=== PATIENT | female | born 1975 | race Caucasian/White ===

== ENCOUNTER 2016-12-22 11:32 | Emergency (ER) | payer SELFPAY ==
[~2016-12-22] VITALS: Ht 165.1 cm; Wt 63.6 kg
[~2016-12-22 11:32] MED LIST: CEPH500C3 PO; LASI20TA PO; METH5SOL3 PO
[2016-12-22] MEDS ORDERED: IBUP-232 PO (11:45)
[2016-12-22] MEDS ORDERED: IBUP800T23 PO (13:08)
[2016-12-22] MEDS ORDERED: OFLO0.3D9 RIGHT EAR (13:08)
--- NOTE | 2016-12-22 13:08 | PD ---
HPI Chief Complaint: ENT Complaint Time Seen by Provider: 13:03 Travel History International Travel<30 days: No Contact w/Intl Traveler<30days: No Traveled to known affect area: No History of Present Illness HPI 41-year-old female presents emergency department complaint of right ear pain that onset this morning. She has been cleaning her right ear out multiple times with [id number] products since she's been told she had a cerumen impaction last time she was seen here. She has not followed up with ENT as directed. She has been flushing her ear and using Q-tips to remove the earwax. She is requesting her ear before because she cannot get all the earwax out. Reports feeling like there is fluid behind her ear. No known relieving factors. Denies fever, chills, nausea, vomiting. Denies drainage from the ear. No known allergies. No other modifying factors or associated signs and symptoms. PFSH Past Medical History Cancer: Yes (hx cervical cancer) Chemotherapy: Yes (FINISHED 3 YEARS AGO) Diminished Hearing: No ?: Not Past Surgical History Cholecystectomy: Yes Hysterectomy: Yes (partial) Social History Alcohol Use: No Tobacco Use: Yes (1 ppd) Substance Use: No (currently goes to methadone clinic) Allergies-Medications (Allergen,Severity, Reaction): Coded Allergies: No Known Allergies (Unverified , 05/18/16) Reported Meds & Prescriptions Reported Meds & Active Scripts Active Ibuprofen 800 Mg Tab 800 Mg PO Q6HR PRN Ofloxacin Otic Drops 0.3 % Drops 10 Drop RIGHT EAR DAILY 7 Days Reported Ibuprofen 600 Mg Tab 600 Mg PO Q6H PRN Methadone HCl 5 Mg/5 Ml Faby 10 Mg PO DAILY Review of Systems Except as stated in HPI: all other systems reviewed are Neg Physical Exam Narrative GENERAL: Well-nourished, well-developed female patient, in no acute distress SKIN: Warm and dry. No rash. HEAD: Atraumatic. Normocephalic. EYES: Pupils equal and round at 3 mm with brisk reaction. No scleral icterus. No injection or drainage. PERRLA. ENT: Mucosa pink and moist. No erythema or exudates. No uvular edema. No uvular , palatal, or tonsillar deviation. Airway patent. EARS: Bilateral pinnae and external canals appear within normal limits. Left tympanic membranes without erythema, dullness or perforation. Right tympanic membrane appears ruptured; without erythema, edema, drainage. NECK: Trachea midline. No lymphadenopathy. CARDIOVASCULAR: Regular rate. RESPIRATORY: No accessory muscle use. GASTROINTESTINAL: Flat. MUSCULOSKELETAL: No obvious deformities. No clubbing. No cyanosis. No edema. NEUROLOGICAL: Awake and alert. Oriented 3. No obvious cranial nerve deficits. Motor grossly within normal limits. Normal speech. Moves all extremities. 5/5 strength to all extremities. PSYCHIATRIC: Appropriate mood and affect; insight and judgment normal. [facility] Medical Decision Making Medical Screen Exam Complete: Yes Emergency Medical Condition: Yes Medical Record Reviewed: Yes Differential Diagnosis Impaction, foreign body, tympanic membrane rupture or perforation Narrative Course 41-year-old female physical exam consistent with a right tympanic membrane rupture or perforation. Ofloxacin and ibuprofen prescribed for home. Instructed patient to follow up with ENT. Patient verbalized understanding and agreement with treatment plan. Patient is medically cleared and stable for discharge. Discussed reasons to return to the emergency department. Instructed patient to follow up with primary care provider. Patient agrees with treatment plan. The patients vital signs are stable and the patient is stable for outpatient follow-up and treatment. Patient discharged home, stable and in no acute distress. Diagnosis Primary Impression: Ruptured or perforated eardrum Qualified Code: H72.91 - Ruptured or perforated eardrum, right Referrals: Ear / Nose / Throat Specialist Primary Care Physician Patient Instructions: General Instructions Departure Forms: Work Release Enter return to work date: Dec 23, 2016 Additional Instructions: Use antibiotic eardrops as prescribed Ibuprofen or Tylenol as directed and as needed to reduce pain and fever Avoid getting water in the ears Do not put anything in the ears; including Q-tips Follow-up with your primary care provider Follow-up with ears nose throat specialist Return to the emergency department immediately with worsening of symptoms Med/Other Pt SpecificInfo: Prescription(s) given Scripts Ibuprofen 800 Mg [id number] Mg PO Q6HR PRN (PAIN) #30 TAB Ref 0 Prov:Lary Silva 12/22/16 Ofloxacin Otic Drops 0.3 % Drops10 Drop RIGHT EAR DAILY 7 Days Ref 0 Prov:Lary Silva 12/22/16 Disposition: 01 DISCHARGE HOME Condition: Stable Lary Silva Dec 22, 2016 13:08
== END 2016-12-22 13:50 | disposition home or self-care (01) ==
LOC: NEPB 11:32
DX: H72.91 Unspecified perforation of tympanic membrane, right ear (principal); F17.200 Nicotine dependence, unspecified, uncomplicated; Z85.41 Personal history of malignant neoplasm of cervix uteri
CPT/HCPCS: 99282

== ENCOUNTER 2017-10-31 14:11 | Emergency (ER) | payer SELFPAY ==
[~2017-10-31] VITALS: Ht 165.1 cm; Wt 60.3 kg
[~2017-10-31 14:11] MED LIST changes: -CEPH500C3 PO; +IBUP-232 PO; +IBUP1TAB7 PO; -LASI20TA PO; +OFLO0.3D9 RIGHT EAR
[2017-10-31 14:28] VITALS: BP 130/79; PULSE 100; RESP 16; TEMP 98.2; O2SAT 98
--- NOTE | 2017-10-31 14:51 | PD ---
HPI Chief Complaint: Skin Problem Time Seen by Provider: 14:43 Travel History International Travel<30 days: No Contact w/Intl Traveler<30days: No Traveled to known affect area: No History of Present Illness HPI Patient is a 42-year-old female presenting to emergency department for evaluation of a right second fingernail infection. Patient states she had a hangnail 2 days ago which she bit off, she subsequently started having swelling , redness and discoloration to the right second fingernail and fingertip. Pt reports pain is an 8/10 and states it is throbbing. No alleviating factors, pain is exacerbated with touch or movement. Denies any fevers or chills. Symptoms started gradually. PFSH Past Medical History Cancer: Yes (hx cervical cancer) Cardiovascular Problems: Yes (htn but takes no meds) Chemotherapy: Yes (inpast) Diminished Hearing: No Immunizations Current: Yes Tetanus Vaccination: < 5 Years Influenza Vaccination: No ?: Not Past Surgical History Cholecystectomy: Yes Hysterectomy: Yes Social History Alcohol Use: No Tobacco Use: Yes (1 ppd) Substance Use: Yes Allergies-Medications (Allergen,Severity, Reaction): Coded Allergies: No Known Allergies (Unverified Adverse Reaction, Unknown, 10/31/17) Reported Meds & Prescriptions Reported Meds & Active Scripts Active No Active Prescriptions or Reported Medications Review of Systems Except as stated in HPI: all other systems reviewed are Neg Musculoskeletal: Positive: Edema (right second finger) Skin: Positive Change in Pigmentation, Positive Change in nails Physical Exam Narrative GENERAL: Well developed, well nourished, alert female. Resting in no acute distress. SKIN: Warm and dry. right second finger tip is erythematous, edematous and has a green discoloration to the medial aspect of the nailbed. <3 second cap refill noted. HEAD: Normocephalic. EYES: No scleral icterus. No injection or drainage. NECK: Supple, trachea midline. No JVD or lymphadenopathy. CARDIOVASCULAR: Regular rate and rhythm without murmurs, gallops, or rubs. RESPIRATORY: Breath sounds equal bilaterally. No accessory muscle use. GASTROINTESTINAL: Abdomen soft, non-tender, nondistended. MUSCULOSKELETAL: No cyanosis, or edema. Data Data Last Documented VS Vital Signs Date Time Temp Pulse Resp B/P (MAP) Pulse Ox O2 Delivery O2 Flow Rate FiO2 10/31/17 14:28 98.2 100 16 130/79 (96) 98 [facility] Medical Decision Making Medical Screen Exam Complete: Yes Emergency Medical Condition: Yes Interpretation(s) Vital Signs Date Time Temp Pulse Resp B/P (MAP) Pulse Ox O2 Delivery O2 Flow Rate FiO2 10/31/17 14:28 98.2 100 16 130/79 (96) 98 Differential Diagnosis Paronychia versus abscess versus cellulitis versus other Narrative Course Patient presented with 2 days of an infected right second fingertip. Her vital signs are stable, she is afebrile. Please see procedure report for I&D. Cultures were obtained. Patient tolerated well. She was encouraged to keep area clean and dry, complete full course of antibiotics as prescribed. She is encouraged follow-up with her primary doctor or return to emergency department for any new or worsening symptoms. Patient verbalized understanding of instructions. Patient stable for discharge. Procedures Procedure Narrative After the risks and benefits were discussed the following procedure was performed: INCISION AND DRAINAGE OF ABSCESS: The area was prepped and was sterilely draped. Ethyl chloride was used to anesthetize the area. The area was properly anesthetized. A number 11 scalpel was used to make a 0.5-cm incision across the area of the abscess. Cultures were obtained. The abscess was drained an irrigated with normal saline. Sterile dressing applied. Diagnosis Primary Impression: Paronychia of finger Qualified Codes: L03.011 - Cellulitis of right finger Additional Impression: Encounter for incision and drainage procedure Referrals: Primary Care Physician 3 days Patient Instructions: Abscess Incision and Drainage (DC), General Instructions , Paronychia (ED) Additional Instructions: Keep the fingertip clean and dry, apply antibiotic ointment twice daily and cover with clean, dry dressing Complete full course of antibiotics as prescribed Return to emergency department for any new or worsening symptoms Follow-up with her primary doctor Med/Other Pt SpecificInfo: Prescription(s) given Scripts Tramadol (Tramadol) 50 Mg Tab 50 MG PO Q6H Y for PAIN, #7 TAB 0 Refills Prov: Buffy Awad 10/31/17 Mupirocin Topical (Mupirocin Topical) 2 % Oint 1 APPLIC TOPICAL BID for Mgmt Bacterial Infection, #22 GM 0 Refills Prov: Buffy Awad 10/31/17 Sulfamethoxazole-Trimethoprim (Bactrim DS) 800-160 Mg Tab 1 TAB PO BID for Infection for 7 Days, #14 TAB 0 Refills Prov: Buffy Awad 10/31/17 Cephalexin (Keflex) 500 Mg Cap 500 MG PO Q12H for Infection for 7 Days, #14 CAP 0 Refills Prov: Buffy Awad 10/31/17 Disposition: 01 DISCHARGE HOME Condition: Stable Buffy Awad Oct 31, 2017 14:51
[2017-10-31] MEDS ORDERED: MUPI2OIN TOPICAL (15:04)
[2017-10-31] MEDS ORDERED: CEPH-460 PO (15:04)
[2017-10-31] MEDS ORDERED: TRAM50TA PO (15:04)
[2017-10-31] MEDS ORDERED: BACT800T5 PO (15:04)
== END 2017-10-31 15:15 | disposition home or self-care (01) ==
LOC: PHEFT 14:11
DX: L03.011 Cellulitis of right finger (principal); B95.61 Methicillin susceptible Staphylococcus aureus infection as the cause of diseases classified elsewhere; I10 Essential (primary) hypertension; F17.200 Nicotine dependence, unspecified, uncomplicated
CPT/HCPCS: 10060; 86403; 87070; 87077; 87186; 87205

== ENCOUNTER 2017-12-11 23:59 | Emergency (ER) | payer SELFPAY ==
[~2017-12-11] VITALS: Ht 165.1 cm; Wt 65.0 kg
[~2017-12-11 23:59] MED LIST changes: +BACT800T5 PO; +CEPH-460 PO; -IBUP-232 PO; -IBUP1TAB7 PO; -METH5SOL3 PO; +MUPI2OIN TOPICAL; -OFLO0.3D9 RIGHT EAR; +TRAM50TA PO
[2017-12-12 00:01] VITALS: BP 135/81; PULSE 109; RESP 17; TEMP 99.3; O2SAT 100
[2017-12-12 00:15] VITALS: BP 128/80; PULSE 98; RESP 18; O2SAT 100
[2017-12-12] MEDS ORDERED: KETOROLAC TROMETHAMINE 30 MG/ML (IVP) VIAL IV PUSH ONE ×2 (00:30→03:00)
[2017-12-12] MEDS ORDERED: ONDANSETRON HCL 4 MG/2 ML VIAL IV PUSH ONE (00:30)
[2017-12-12 01:55] LABS: AUTOMATED NEUTROPHIL # 11.5 TH/MM3 (1.8-7.7); BASOPHIL # 0.1 TH/MM3 (0-0.2); BASOPHIL % 0.4 % (0.0-2.0); EOSINOPHIL # 0.3 TH/MM3 (0-0.4); EOSINOPHIL % 1.9 % (0.0-4.0); HEMATOCRIT 32.7 % (35.0-46.0); HEMOGLOBIN 11.2 GM/DL (11.6-15.3); LYMPH % 17.6 % (9.0-44.0); LYMPHOCYTE # 2.8 TH/MM3 (1.0-4.8); MEAN CELL VOLUME 93.2 FL (80.0-100.0); MEAN CORPUSCULAR HEMOGLOBIN 31.9 PG (27.0-34.0); MEAN CORPUSCULAR HGB CONC 34.2 % (32.0-36.0); MEAN PLATELET VOLUME 7.4 FL (7.0-11.0); MONO % 8.9 % (0.0-8.0); MONOCYTE # 1.4 TH/MM3 (0-0.9); NEUT % 71.2 % (16.0-70.0); PLATELET COUNT 325 TH/MM3 (150-450); RED BLOOD COUNT 3.51 MIL/MM3 (4.00-5.30); RED CELL DISTRIBUTION WIDTH 13.1 % (11.6-17.2); WHITE BLOOD COUNT 16.1 TH/MM3 (4.0-11.0)
[2017-12-12 02:12] LABS: ALKALINE PHOSPHATASE 77 U/L (45-117); TOTAL BILIRUBIN ADULT 0.5 MG/DL (0.2-1.0); TOTAL PROTEIN 7.8 GM/DL (6.4-8.2)
[2017-12-12 02:14] LABS: ALT (GPT) 25 U/L (10-53); AST (GOT) 22 U/L (15-37); BICARBONATE 30.7 MEQ/L (21.0-32.0); BLOOD UREA NITROGEN 13 MG/DL (7-18); CALCIUM 8.3 MG/DL (8.5-10.1); CHLORIDE 103 MEQ/L (98-107); CREATININE 0.74 MG/DL (0.50-1.00); GLOMERULAR FILTRATION RATE 86 ML/MIN (>89); GLUCOSE,RANDOM 108 MG/DL (74-106); SODIUM (NA) 139 MEQ/L (136-145)
[2017-12-12 02:21] LABS: BACTERIA, URINE RARE /hpf; BILIRUBIN, URINE NEG (NEG); BLOOD, URINE TRACE (NEG); GLUCOSE,URINE NEG (NEG); KETONE, URINE NEG (NEG); MUCUS URINE FEW /lpf (OCC); NITRITE,URINE NEG (NEG); PH, URINE 6.5 (5.0-8.5); SQUAMOUS EPITHELIAL CELL URINE 4 /hpf (0-5); URINE COLOR YELLOW (YELLW/STRAW); URINE LEUKOCYTE ESTERASE LARGE (NEG)
[2017-12-12] MEDS ORDERED: ceFAZolin 2 GM PREMIX 50 ML IV ONE (03:00)
--- NOTE | 2017-12-12 03:40 | PD ---
HPI Chief Complaint: Complaint Time Seen by Provider: 00:22 Travel History International Travel<30 days: No Contact w/Intl Traveler<30days: No Traveled to known affect area: No History of Present Illness HPI pt has urianry tract dysuria for few days and thinks she is having a recurrence of a UTI , She has had UTI in the past. PT Reports frquency dysuria , no fever no chills no vomit , she does feels tired listless... She has not seen another MD NOR HAS SHE TAKEN ANY MEDS TO ALLEVIATE SX PFSH Past Medical History Cancer: Yes (hx cervical cancer) Cardiovascular Problems: Yes (htn but takes no meds) Chemotherapy: Yes (inpast) Diminished Hearing: No Immunizations Current: Yes Tetanus Vaccination: < 5 Years Influenza Vaccination: Yes ?: Unknown Past Surgical History Cholecystectomy: Yes Hysterectomy: Yes Social History Alcohol Use: No Tobacco Use: Yes (1 ppd) Substance Use: Yes Allergies-Medications (Allergen,Severity, Reaction): Coded Allergies: No Known Allergies (Unverified Adverse Reaction, Unknown, 12/12/17) Reported Meds & Prescriptions Reported Meds & Active Scripts Active Bactrim DS (Sulfamethoxazole-Trimethoprim) 800-160 Mg Tab 1 Tab PO BID Tramadol (Tramadol HCl) 50 Mg Tab 50 Mg PO Q6H PRN Mupirocin Topical (Mupirocin) 2 % Oint 1 Applic TOPICAL BID Bactrim DS (Sulfamethoxazole-Trimethoprim) 800-160 Mg Tab 1 Tab PO BID 7 Days Keflex (Cephalexin) 500 Mg Cap 500 Mg PO Q12H 7 Days Review of Systems Except as stated in HPI: all other systems reviewed are Neg Genitourinary: Positive: Frequency, Dysuria Physical Exam Narrative GENERAL: NON TOXIC APPEARANCE SKIN: Warm and dry. HEAD: Atraumatic. Normocephalic. EYES: Pupils equal and round. No scleral icterus. No injection or drainage. ENT: No nasal bleeding or discharge. Mucous membranes pink and moist. NECK: Trachea midline. No JVD. CARDIOVASCULAR: Regular rate and rhythm. RESPIRATORY: No accessory muscle use. Clear to auscultation. Breath sounds equal bilaterally. GASTROINTESTINAL: Abdomen MILD SUPRAPUBIC TENDER Hepatic and splenic margins not palpable. MUSCULOSKELETAL: Extremities without clubbing, cyanosis, or edema. No obvious deformities. NEUROLOGICAL: Awake and alert. No obvious cranial nerve deficits. Motor grossly within normal limits. Five out of 5 muscle strength in the arms and legs. Normal speech. PSYCHIATRIC: Appropriate mood and affect; insight and judgment normal. Data Data Last Documented VS Vital Signs Date Time Temp Pulse Resp B/P (MAP) Pulse Ox O2 Delivery O2 Flow Rate FiO2 12/12/17 05:28 12/12/17 00:15 98 18 100 12/12/17 00:01 99.3 Room Air Orders Orders Complete Blood Count With Diff (12/12/17 00:28) Comprehensive Metabolic Panel (12/12/17 00:28) Lipase (12/12/17 00:28) Urinalysis - C+S If Indicated (12/12/17 00:28) Ondansetron Inj (Zofran Inj) (12/12/17 00:30) Ketorolac Inj (Toradol Inj) (12/12/17 00:30) Urine Culture (12/12/17 01:45) Cefazolin 2 Gm Premix (Ancef 2 Gm Premix (12/12/17 03:00) Ketorolac Inj (Toradol Inj) (12/12/17 03:00) Ed Discharge Order (12/12/17 04:15) Labs Laboratory Tests Test 12/12/17 01:05 12/12/17 01:45 White Blood Count 16.1 TH/MM3 Red Blood Count 3.51 MIL/MM3 Hemoglobin 11.2 GM/DL Hematocrit 32.7 % Mean Corpuscular Volume 93.2 FL Mean Corpuscular Hemoglobin 31.9 PG Mean Corpuscular Hemoglobin Concent 34.2 % Red Cell Distribution Width 13.1 % Platelet Count 325 TH/MM3 Mean Platelet Volume 7.4 FL Neutrophils (%) (Auto) 71.2 % Lymphocytes (%) (Auto) 17.6 % Monocytes (%) (Auto) 8.9 % Eosinophils (%) (Auto) 1.9 % Basophils (%) (Auto) 0.4 % Neutrophils # (Auto) 11.5 TH/MM3 Lymphocytes # (Auto) 2.8 TH/MM3 Monocytes # (Auto) 1.4 TH/MM3 Eosinophils # (Auto) 0.3 TH/MM3 Basophils # (Auto) 0.1 TH/MM3 CBC Comment DIFF FINAL Differential Comment Blood Urea Nitrogen 13 MG/DL Creatinine 0.74 MG/DL Random Glucose 108 MG/DL Total Protein 7.8 GM/DL Albumin 3.0 GM/DL Calcium Level 8.3 MG/DL Alkaline Phosphatase 77 U/L Aspartate Amino Transf (AST/SGOT) 22 U/L Alanine Aminotransferase (ALT/SGPT) 25 U/L Total Bilirubin 0.5 MG/DL Sodium Level 139 MEQ/L Potassium Level 3.8 MEQ/L Chloride Level 103 MEQ/L Carbon Dioxide Level 30.7 MEQ/L Anion Gap 5 MEQ/L Estimat Glomerular Filtration Rate 86 ML/MIN Lipase 50 U/L Urine Color YELLOW Urine Turbidity HAZY Urine pH 6.5 Urine Specific [place] 1.020 Urine Protein 30 mg/dL Urine Glucose (UA) NEG mg/dL Urine Ketones NEG mg/dL Urine Occult Blood TRACE Urine Nitrite NEG Urine Bilirubin NEG Urine Urobilinogen 2.0 MG/DL Urine Leukocyte Esterase LARGE Urine RBC 6 /hpf Urine WBC /hpf Urine Squamous Epithelial Cells 4 /hpf Urine Bacteria RARE /hpf Urine Mucus FEW /lpf Microscopic Urinalysis Comment CULTURE INDICATED MDM Medical Decision Making Medical Screen Exam Complete: Yes Emergency Medical Condition: Yes Differential Diagnosis uti vs viral illness vs colitis vs abdo pain NOS other cystitis Narrative Course UTI bactrim given and close follow up as outpt Diagnosis Primary Impression: Urinary tract infection Qualified Codes: N30.00 - Acute cystitis without hematuria Patient Instructions: General Instructions, Urinary Tract Infection in Women ( ED) Scripts Sulfamethoxazole-Trimethoprim (Bactrim DS) 800-160 Mg Tab 1 TAB PO BID for Infection, #14 TAB 0 Refills Prov: Erich Concepcion MD 12/12/17 Erich Concepcion MD Dec 12, 2017 03:40
[2017-12-12] MEDS ORDERED: BACT800T5 PO (04:59)
== END 2017-12-12 05:00 | disposition home or self-care (01) ==
LOC: NEPE 23:59
DX: N30.00 Acute cystitis without hematuria (principal); R53.83 Other fatigue; I10 Essential (primary) hypertension; F17.200 Nicotine dependence, unspecified, uncomplicated; Z85.41 Personal history of malignant neoplasm of cervix uteri
CPT/HCPCS: 80053; 81001; 83690; 85025; 87086; 96365; 96375; 99284; J0690; J1885; J2405

== ENCOUNTER 2018-02-10 20:01 | Emergency (ER) | payer SELFPAY ==
[~2018-02-10] VITALS: Ht 165.1 cm; Wt 61.5 kg
[2018-02-10 20:04] VITALS: PULSE 109; RESP 25; TEMP 97.9; O2SAT 92
[2018-02-10 20:15] VITALS: BP 119/82; PULSE 96; RESP 28; O2SAT 97
--- NOTE | 2018-02-10 20:23 | PD ---
HPI Chief Complaint: Respiratory Distress Time Seen by Provider: 20:23 Travel History International Travel<30 days: No Contact w/Intl Traveler<30days: No Traveled to known affect area: No History of Present Illness HPI 42-year-old female came to the emergency room with history of shortness of breath and cough that is worsening over past 1 month. Patient says that the cough has been productive but the sputum is mostly clear color. No history of fever or chills. Patient says she gets occasional chest pain/chest tightness from this. Patient is a smoker although she says she has not been able to smoke in past couple weeks because of her condition. She has history of asthma and has been using her inhaler without much relief. She ran out of her inhaler today. She did not go to seek medical help for this condition and is the first time she is coming in. Patient says she was here one and half month ago diagnosed with pneumonia given antibiotic. Vital signs shows some hypoxia and tachypnea. Patient appears to be in mild distress per [facility] Past Medical History Narrative Medical List of her past medical, surgical, social and family history is reviewed from the nursing note. Cancer: Yes (hx cervical cancer) Cardiovascular Problems: Yes (htn but takes no meds) Chemotherapy: Yes (inpast) Diminished Hearing: No Immunizations Current: Yes ?: Not Past Surgical History Cholecystectomy: Yes Hysterectomy: Yes Social History Alcohol Use: No Tobacco Use: Yes (1 ppd) Substance Use: Yes Allergies-Medications (Allergen,Severity, Reaction): Coded Allergies: No Known Allergies (Unverified Adverse Reaction, Unknown, 02/10/18) Comments No known drug allergies. Reported Meds & Prescriptions Reported Meds & Active Scripts Active Prednisone 20 Mg Tab 20 Mg PO BID 5 Days Ventolin Hfa 18 GM Inh (Albuterol Sulfate) 90 Mcg/Act Aer 2 Puff INH Q4-6H PRN Narrative Medication List of his home medications reviewed from the nursing note. Review of Systems Except as stated in HPI: all other systems reviewed are Neg Respiratory: Positive: Shortness of Breath Physical Exam Narrative GENERAL: Awake, alert, moderate distress SKIN: Focused skin assessment warm/dry. HEAD: Atraumatic. Normocephalic. EYES: Pupils equal and round. No scleral icterus. No injection or drainage. ENT: No nasal bleeding or discharge. Mucous membranes pink and moist. NECK: Trachea midline. No JVD. CARDIOVASCULAR: Regular rate and rhythm. No murmur appreciated. RESPIRATORY: Moderate respiratory distress. End expiratory wheeze bilaterally GASTROINTESTINAL: Abdomen soft, non-tender, nondistended. Hepatic and splenic margins not palpable. MUSCULOSKELETAL: No obvious deformities. No clubbing. No cyanosis. No edema. NEUROLOGICAL: Awake and alert. No obvious cranial nerve deficits. Motor grossly within normal limits. Normal speech. PSYCHIATRIC: Appropriate mood and affect; insight and judgment normal. Data Data Last Documented VS Vital Signs Date Time Temp Pulse Resp B/P (MAP) Pulse Ox O2 Delivery O2 Flow Rate FiO2 02/10/18 23:42 100 Nasal Cannula 2.00 02/10/18 23:41 116 20 118/60 (79) 02/10/18 20:04 97.9 Orders Orders Iv Access Insert/Monitor (02/10/18 20:27) Ecg Monitoring (02/10/18 20:27) Oximetry (02/10/18 20:27) Oxygen Administration (02/10/18 20:27) Sodium Chloride 0.9% Flush (Ns Flush) (02/10/18 20:30) Prednisone (Deltasone) (02/10/18 20:30) Chest, Pa & Lat (02/10/18 ) Albuterol-Ipratropium Neb (Duoneb Neb) (02/10/18 20:45) Albuterol Neb (Albuterol Neb) (02/10/18 22:00) Ed Discharge Order (02/10/18 23:26) [facility] Medical Decision Making Medical Screen Exam Complete: Yes Emergency Medical Condition: Yes Medical Record Reviewed: Yes Differential Diagnosis COPD exacerbation, bronchitis, pneumonia Narrative Course 9:49 PM patient was given 3 DuoNeb's and p.o. prednisone. Chest x-ray is negative of pneumonia or any other densities. I will reassess her in a bit. I have asked the nurse to take her off the oxygen cannula and check her pulse ox on room air. 11:24 PM patient was reassessed and after 3 DuoNeb's and 2 albuterol air entry significantly better. Oxygen saturation is 94% on room air. Patient says she feels better. I am comfortable discharging her home at this point. I have given her instructions. I will also lectured her about smoking triggering asthma and making it worse. She understands. She has been asked to abstain from smoking. Procedures EKG Prior to Arrival: No Diagnosis Primary Impression: Acute asthma exacerbation Qualified Codes: J45.51 - Severe persistent asthma with (acute) exacerbation Additional Impression: Needs smoking cessation education Referrals: Primary Care Physician Additional Instructions: Take the medication as per the prescription direction. Return to the ER if condition worsens or any other new concerns. You should not smoke either firsthand or secondhand in order to get better. Follow-up with primary care. Med/Other Pt SpecificInfo: Prescription(s) given Scripts Prednisone (Prednisone) 20 Mg Tab 20 MG PO BID for 5 Days, #10 TAB 0 Refills Prov: Bonnie Barriga MD 02/10/18 Albuterol 18 GM Inh (Ventolin Hfa 18 GM Inh) 90 Mcg/Act Aer 2 PUFF INH Q4-6H Y for SHORTNESS OF BREATH, #1 INHALER 0 Refills Prov: Bonnie Barriga MD 02/10/18 Disposition: 01 DISCHARGE HOME Condition: Stable Bonnie Barriga MD Feb 10, 2018 20:23
[2018-02-10] MEDS ORDERED: predniSONE 20 MG TAB PO ONE (20:30)
[2018-02-10] MEDS ORDERED: SODIUM CHLORIDE 0.9% FLUSH 10 ML FLUSH IVF PRN (20:30)
[2018-02-10] MEDS: RESP: ALBUTEROL 2.5 MG/IPRATROPIUM 0.5 MG NEB (SCH) INH ×2 (20:42→20:43)
--- NOTE | 2018-02-10 21:35 | RADRPT ---
EXAM DATE/TIME: 02/10/2018 21:13 [place] COMPARISON: No previous studies available for comparison. INDICATIONS : Cough, shortness of breath for 1 month MEDICAL HISTORY : Asthma SURGICAL HISTORY : None. ENCOUNTER: Initial ACUITY: 1 month PAIN SCORE: 8/10 LOCATION: Bilateral chest FINDINGS: PA and lateral views of the chest demonstrate the lungs to be symmetrically aerated without evidence of mass, infiltrate or effusion. The cardiomediastinal contours are unremarkable. Osseous structure s are intact. CONCLUSION: No acute disease. Dean Simpson MD on February 10, 2018 at 21:32 Board Certified Radiologist. This report was verified electronically.
[2018-02-10] MEDS: RESP: ALBUTEROL 2.5 MG/3 ML NEB (SCH) INH (22:42)
[2018-02-10] MEDS ORDERED: PRED20 PO (23:26)
[2018-02-10] MEDS ORDERED: VENTAER INH (23:26)
[2018-02-10 23:41] VITALS: BP 118/60
== END 2018-02-10 23:43 | disposition home or self-care (01) ==
LOC: NEPD 20:01
DX: J45.51 Severe persistent asthma with (acute) exacerbation (principal); F17.210 Nicotine dependence, cigarettes, uncomplicated
CPT/HCPCS: 71046; 94640; 94664; 99284; J7512; J7613

== ENCOUNTER 2018-03-03 05:29 | Emergency (ER) | payer SELFPAY ==
[2018-03-03] MEDS ORDERED: SODIUM CHLORIDE 0.9% FLUSH 10 ML FLUSH IVF (05:45)
[2018-03-03] MEDS: RESP: ALBUTEROL 2.5 MG/IPRATROPIUM 0.5 MG NEB (SCH) INH ×2 (05:48)
[2018-03-03] MEDS: methylPREDNISolone SOD SUCC 125 MG/2 ML VIAL IV PUSH (05:53)
[2018-03-03 05:54] LABS: AUTOMATED NEUTROPHIL # 4.6 TH/MM3 (1.8-7.7); BASOPHIL % 0.5 % (0.0-2.0); EOSINOPHIL # 0.8 TH/MM3 (0-0.4); HEMO FLAGS DIFF FINAL; HEMOGLOBIN 13.6 GM/DL (11.6-15.3); LYMPH % 31.4 % (9.0-44.0); LYMPHOCYTE # 2.8 TH/MM3 (1.0-4.8); MEAN CELL VOLUME 89.6 FL (80.0-100.0); MEAN CORPUSCULAR HEMOGLOBIN 30.5 PG (27.0-34.0); MEAN PLATELET VOLUME 7.2 FL (7.0-11.0); MONO % 7.9 % (0.0-8.0); MONOCYTE # 0.7 TH/MM3 (0-0.9); NEUT % 51.2 % (16.0-70.0); PLATELET COUNT 264 TH/MM3 (150-450); RED BLOOD COUNT 4.47 MIL/MM3 (4.00-5.30); RED CELL DISTRIBUTION WIDTH 12.4 % (11.6-17.2); WHITE BLOOD COUNT 8.9 TH/MM3 (4.0-11.0)
[2018-03-03 06:02] LABS: CHLORIDE 107 MEQ/L (98-107); SODIUM (NA) 140 MEQ/L (136-145)
[2018-03-03 06:05] LABS: CALCIUM 8.6 MG/DL (8.5-10.1)
[2018-03-03 06:06] LABS: ALBUMIN 3.2 GM/DL (3.4-5.0); ANION GAP 4 MEQ/L (5-15); BICARBONATE 29.1 MEQ/L (21.0-32.0); BLOOD UREA NITROGEN 11 MG/DL (7-18); GLUCOSE,RANDOM 99 MG/DL (74-106)
[2018-03-03 06:09] LABS: ALT (GPT) 70 U/L (10-53); AST (GOT) 22 U/L (15-37); CREATININE 0.74 MG/DL (0.50-1.00); GLOMERULAR FILTRATION RATE 86 ML/MIN (>89)
[2018-03-03 06:11] LABS: TOTAL BILIRUBIN ADULT 0.3 MG/DL (0.2-1.0); TOTAL PROTEIN 7.6 GM/DL (6.4-8.2)
[2018-03-03 06:12] LABS: ALKALINE PHOSPHATASE 78 U/L (45-117)
[2018-03-03 06:14] LABS: TROPONIN I LESS THAN 0.02 NG/ML (0.02-0.05)
== END 2018-03-03 07:41 | disposition home or self-care (01) ==
LOC: PHED 05:29
DX: J45.901 Unspecified asthma with (acute) exacerbation (principal); R00.0 Tachycardia, unspecified; R05 Cough; R94.31 Abnormal electrocardiogram [ECG] [EKG]; I10 Essential (primary) hypertension; F17.200 Nicotine dependence, unspecified, uncomplicated; Z79.51 Long term (current) use of inhaled steroids; Z79.899 Other long term (current) drug therapy
CPT/HCPCS: 71045; 80053; 84484; 85025; 93005; 94640; 94664; 96374; 99285-25